=== PATIENT | female | born 1935 | race Caucasian/White ===

== ENCOUNTER → 2021-07-16 | Outpatient (CLI) | payer MEDICARE, OTHER ==
--- NOTE | 2021-07-16 14:02 | RAD ---
XR FOOT_LEFT 3 VIEWS History: Left foot pain Comparison: None. Technique: 3 views the left foot. Findings: Decreased osseous mineralization. No fracture or dislocation. Mild degenerative changes of the first metatarsophalangeal joint. Monckeberg vascular calcifications are present. Plantar calcaneal enthesop hyte. No focal soft tissue swelling. Impression: 1. No acute osseous abnormality in the left foot. Electronically signed by: Cachorro Hagen MD (07/16/2021 1:59 PM) [facility]
== END ==
LOC: RAD 11:48
PROVIDERS: ATTEND Nurse Practitioner Family
DX: M19.072 Primary osteoarthritis, left ankle and foot (principal); M77.32 Calcaneal spur, left foot; X58.XXXA Exposure to other specified factors, initial encounter; Y93.89 Activity, other specified; Y92.89 Other specified places as the place of occurrence of the external cause; Y99.8 Other external cause status
CPT/HCPCS: 73630